=== PATIENT | male | born 1980 | race Caucasian/White ===

== ENCOUNTER 2017-09-23 13:56 | Emergency (ER) | payer BC, SELFPAY ==
[2017-09-23 13:57] VITALS: BP 130/88; PULSE 68; PULSE 69; RESP 17; RESP 18; TEMP 36.9; O2SAT 99; BMI 23.9
--- NOTE | 2017-09-23 14:10 | RAD_ITS ---
STUDY: X-RAY - LEFT ANKLE REASON FOR EXAM: Male, 37 years old. Trauma TECHNIQUE: 3 view(s) of the ankle. COMPARISON: None. FINDINGS: There is an oblique fracture of the lateral malleolus and a minimally displaced fracture of the posterior malleolus. The remainder of the visualized osseous structures are intact. There is soft tissue swelling noted. There are no significant degenerative changes. There are no radiodense foreign bodies. RAD/Ankle min 3 Views IMPRESSION: Oblique fracture of the lateral malleolus and minimally displaced fracture of the posterior malleolus. Soft tissue swelling. Electronically Signed: Xiang Del Rio, at 14:36 EDT Tel , Service support ,
[2017-09-23] MEDS: oxyCODONE 5 MG Tablet 10 MG PO (14:12)
--- NOTE | 2017-09-23 14:51 | ED.DCSUM_ITS ---
- ER Visit Summary Date of Service: 09/23/17 Chief Complaint: Left ankle fracture History of Present Illness: The patient is a 37 M who states that today he had a horse fall onto his left ankle. He states he heard a pop. He states he felt very nauseated by the pain. He denies any other injuries Physical Examination: Afebrile vital signs are stable Gen: Well-nourished well-developed Head: Normocephalic atraumatic Eyes: Perrl EOMI ENT: TMs clear no rhinorrhea moist mucous membranes Neck: Supple no lymphadenopathy no JVD nontender CVS: Regular rate rhythm no murmurs normal S1-S2 Respiratory: No distress clear to auscultation bilaterally chest nontender Abdomen: Soft nontender nondistended normal bowel sounds no masses Back: Nontender Extremity: The left ankle is painful. Limited range of motion. Neurovascular intact distally. He is swelling and ecchymosis over the medial lateral and posterior malleoli. Skin: Normal color no rash Neuro: alert orientated ?3 CN II-XII intact normal strength sensation reflexes gait cerebellar Psych: Normal affect normal mood Test Results: X-rays revealed a posterior malleolus and a lateral malleolus fracture with some widening mortise. Emergency Department Course and Treatment: Patient received oxycodone. He was placed in a posterior and stirrup splint. He is nonweightbearing. He will be given crutches and a prescription for oxycodone instructions to follow-up with orthopedics (Dr. Prieto on for no doc) Impression: 1. Bimalleolar left ankle fracture (closed) This note was generated with [employer] dictation software. It may contain incorrect words, spelling, and punctuation that were not noted in review of the chart prior to signing ED Disposition - Plan for ED Patient: Disposition: Home or Assisted Living Chief Complaint: Lower Extremity Injury Prescriptions: Oxycodone [Oxyir] 5 - 10 mg PO Q6H PRN PRN 4 Days #20 tab PRN Reason: Pain Referrals: Xiang Prieto MD [STAFF PHYSICIAN] - (call to arrange follow up)
== END 2017-09-23 15:52 | disposition home or self-care (01) ==
LOC: ED 15:38
PROVIDERS: Emergency Provider Emergency Medicine
DX: S82.842A Displaced bimalleolar fracture of left lower leg, initial encounter for closed fracture (principal); V80.010A Animal-rider injured by fall from or being thrown from horse in noncollision accident, initial encounter; Y93.52 Activity, horseback riding; Y92.9 Unspecified place or not applicable; Y99.9 Unspecified external cause status
CPT/HCPCS: 29515; 73610; 99282

== ENCOUNTER 2017-12-18 18:00 | Outpatient (RCR) | payer BC, SELFPAY ==
--- NOTE | 2017-11-27 14:01 | HP.PTEVAL ---
Patient's Visit Information NILES DE PAZ is a 37 year old M referred to Physical Therapy by Keshav Le MD with a diagnosis of L trimalleolar fracture. Date of Evaluation: 11/27/17 Physical Therapist: Jeffrey Anne DPT, OC - Visit Plan Frequency: 2x /Week Duration: 4-6 Weeks Plan: 2x/week for 4-6 weeks for : 1. ankle DF, ev,inv, pF stretching and mobs. 2. ankle strength and proprioception. 3. Gait training with pushoff. 4. ice and sTM to L foot and ankle - Subjective Subjective: Horse fell on him at full speed September 23. Surgery 10/04/17 ORIF of trimalleolear fracture. No numbness or tingling.In boot until two weeks ago. NWB until 4 weeks ago. It hurts and no flexibility. Now 7 weeks out and needs more ROM. Has [place] that is a hobby and hel helps with it. He does assembly work. Is of work for the next week and a half. Has brace that he wears when active. Not needing it at home. Pain is 0-5/10 if up and on it a lot without a break for a couple hours. Can ride horse and stand up with discomfort but no pain. [employer] shooting is his hobby. Started back to competition this past weekend and was nominally sore afterwards. Walking on gravel is noticably harder. Sleep is interrupted with soreness. Hard to sleep despite 3 ibuprofen. Has constant achy soreness on outside of ankle and into melvin. Basic aDLs for the most part are good, standing on hard ground too long can be painful to cook. Stairs are troublesome adn uncomfortable on ankle. - Pain L ankle/melvin Pain Intensity (Out of 10): 3 Pain Intensity Range: 0, 5 - Objective L ankle 0 DF, 35 PF. 15 inv, 15 ev. R ankle 10 DF, PF 55, ev 35, in 25. Incisions have healed well with only slight scar tissue lateral L ankle. Hurts to push passively past the above ROM numbers. Strength in ankles L 4- inv/ev/DF and 3+ PF. Very weak and unable to heel raise L. Walks I but no push off with L foot. Steps are reciprocal up but no active PF L and down with L only due to ROM limitations. reflexes 2/3 patella and achilles. Mild swelling evident. Dons and doffs brace I. SLS on L shows poor proprioception vs R and is at 8 sec vs 30 on L. - Goals Goal 1:: 7 degrees DF to allow steps descending reciprocally with one rail. Goal Time Frame: 4-6 Weeks Goal 2:: Walk without gait deviations and ascend steps normal without rail Goal Time Frame: 4-6 Weeks Goal 3:: Patient sleep without interruption from ankle Goal Time Frame: 4-6 Weeks Goal 4:: PT return to work without increased pain. Goal Time Frame: 4-6 Weeks - Rehabilitation Potential Physical Therapy Diagnosis: S/P ORIF L ankle. Rehabilitation Potential: Fair - Anticipated Interventions Patient/Client Instruction: Educate patient on: Condition, Plan of Care For the Purpose of:: To decrease pain, To increase ROM Therapeutic Exercise to Include: Strength training, Flexibilty training, Gait and locomotor training, Passive ROM, Active ROM For the Purpose of:: To decrease pain, To increase ROM, To improve nutrient delivery to tissue, To improve muscle performance and motor function, To increase tolerance to activity/condition/position, To improve gait and locomotor functions Manual Therapy Techniques to Include: Soft tissue mobilization For the Purpose of:: To decrease pain, To decrease swelling/inflammation, To increase ROM, To improve nutrient delivery to tissue Cryotherapy (ice pack, ice massage): Yes For the Purpose of:: To decrease swelling/inflammation Thank you for the opportunity to evaluate your patient. For Medicare and Medicare HMO plans, please review the plan of care and approve it. It will need to be FAXED BACK to us at [phone] for Medicare purposes. Please let me know if there are questions or concerns regarding this plan of care. Physician Signature: Date:
--- NOTE | 2018-02-19 10:43 | HP.PT.NRP ---
HP - Discharge Summary (1) - Patient Information NILES DE PAZ was seen in my office for initial evaluation on 11/27/17. The following Plan of Care was established for this patient: Initial Frequency: 2x /Week Initial Duration: 4-6 Weeks - Anticipated Interventions Patient/Client Instruction: Educate patient on: Condition, Plan of Care For the Purpose of:: To decrease pain, To increase ROM Therapeutic Exercise to Include: Strength training, Flexibilty training, Gait and locomotor training, Passive ROM, Active ROM For the Purpose of:: To decrease pain, To increase ROM, To improve nutrient delivery to tissue, To improve muscle performance and motor function, To increase tolerance to activity/condition/position, To improve gait and locomotor functions Manual Therapy Techniques to Include: Soft tissue mobilization For the Purpose of:: To decrease pain, To decrease swelling/inflammation, To increase ROM, To improve nutrient delivery to tissue Cryotherapy (ice pack, ice massage): Yes For the Purpose of:: To decrease swelling/inflammation This patient was last seen in our office 12/18/17. Pertinent comments regarding their Physical therapy will appear below: Pt seen for 5 visits of plan of care then no showed for the last part of his plan. At this point, it has been over two months and I will dicontinue due to nonattendance. At this point I will be discontinuing this patient from physical therapy. I would be happy to see this patient again in the future if found appropriate by the physician. Thank you! Jeffrey Anne, DPT, OC
== END 2017-12-18 19:00 | disposition home or self-care (01) ==
LOC: PT 18:00
PROVIDERS: Visit Provider Orthopaedic Surgery
DX: S93.432D Sprain of tibiofibular ligament of left ankle, subsequent encounter (principal); S82.852D Displaced trimalleolar fracture of left lower leg, subsequent encounter for closed fracture with routine healing
CPT/HCPCS: 97110; 97162